=== PATIENT | female | born 1945 | race Caucasian/White ===

== ENCOUNTER 2017-07-29 08:00 | Inpatient (IN) | payer OTHER ==
[~2017-07-29] VITALS: Ht 168.9 cm; Wt 79.9 kg
[~2017-07-29 08:00] MED LIST: ASCO100T5 PO; FERR-36 PO; LOSA1TAB19 PO; OMEP-110 PO; ONDA8TAB16 SL; SENN8.6T5 PO; SPIR50TA2 PO
[2017-07-29] MEDS ORDERED: LIDOCAINE/PRILOCAINE CRM W/TEG 5GM TP PRN (09:00)
[2017-07-29 09:01] VITALS: BP 123/86
[2017-07-29 09:02] VITALS: BP 123/86
[2017-07-29 09:41] LABS: HEMOGLOBIN 10.8 g/dL (11.7-16.4); WHITE BLOOD COUNT 14.9 x10^3/uL (3.4-10)
[2017-07-29 09:53] LABS: ASPARTATE AMINO TRANSFERASE 188 U/L (15-37); BLOOD UREA NITROGEN 6 mg/dL (7-18)
[2017-07-29 10:00] LABS: DIFF TOTAL CELLS COUNTED 100 CELL DIFF
[2017-07-29 10:01] LABS: ANISOCYTOSIS 1+; VERIFY COUNTS? YES
[2017-07-29] MEDS ORDERED: OXYC-306 PO (10:47)
[2017-07-29] MEDS ORDERED: MORP30TA81 PO (10:47)
[2017-07-29] MEDS: OXYcodone/APAP 7.5/325MG TABLET PO PRN ×2 (12:00→16:26)
[2017-07-29 12:40] VITALS: BP 113/71
[2017-07-29] MEDS ORDERED: ONDANSETRON IV ONE (13:00)
[2017-07-29] MEDS ORDERED: FAMOTIDINE 20 MG/2 ML IVPush ONE (13:00)
[2017-07-29] MEDS ORDERED: DEXTROSE 5% IV ONE ×3 (13:00→13:30)
[2017-07-29] MEDS ORDERED: DEXAMETHASONE IV ONE (13:00)
[2017-07-29] MEDS ORDERED: LEUCOVORIN IV ONE (13:30)
[2017-07-29] MEDS ORDERED: OXALIPLATIN IV ONE (13:30)
[2017-07-29] MEDS: ENOXAPARIN 40 MG/0.4 ML SQ SCH (13:33)
[2017-07-29] MEDS ORDERED: FLUOROURACIL IV ONE (15:30)
[2017-07-29] MEDS: SODIUM CHLORIDE 0.9% IV SCH (17:54)
[2017-07-29] MEDS: FLUOROURACIL IV SCH (17:54)
[2017-07-29 19:16] VITALS: BP 117/76
[2017-07-29] MEDS: POTASSIUM CHLORIDE 10 MEQ in SODIUM CHLORIDE 0.9% 1,000 ML IV SCH (20:14)
[2017-07-29] MEDS: ONDANSETRON ODT 8 MG BC SCH (20:14)
[2017-07-30 02:12] VITALS: BP 150/88
[2017-07-30] MEDS: OXYcodone/APAP 7.5/325MG TABLET PO PRN ×2 (02:51→13:23)
[2017-07-30 04:33] LABS: BLOOD UREA NITROGEN 7 mg/dL (7-18)
[2017-07-30 04:37] LABS: ASPARTATE AMINO TRANSFERASE 142 U/L (15-37)
[2017-07-30] MEDS ORDERED: OMEPRAZOLE 20 MG CAPSULE.DR PO SCH (07:30)
[2017-07-30 07:40] VITALS: BP 155/79
[2017-07-30] MEDS: HYDROCHLOROTHIAZIDE 12.5 MG CAPSULE PO SCH (08:36)
[2017-07-30] MEDS: ONDANSETRON ODT 8 MG BC SCH ×2 (08:37→20:40)
[2017-07-30] MEDS: GABAPENTIN 300 MG CAPSULE PO SCH (08:40)
[2017-07-30] MEDS: LOSARTAN 50MG TABLET PO SCH (08:40)
[2017-07-30] MEDS: FERROUS SULFATE 325 MG TABLET PO SCH (08:41)
[2017-07-30] MEDS: POTASSIUM CHLORIDE 10 MEQ in SODIUM CHLORIDE 0.9% 1,000 ML IV SCH (11:04)
[2017-07-30] MEDS: ENOXAPARIN 40 MG/0.4 ML SQ SCH (11:05)
[2017-07-30] MEDS ORDERED: CALCIUM CARBONATE 500 MG TAB.CHEW PO PRN (14:00)
[2017-07-30 14:05] VITALS: BP 147/72
[2017-07-30 20:19] VITALS: BP 133/84
[2017-07-30] MEDS: OMEPRAZOLE 20 MG CAPSULE.DR PO SCH (21:52)
[2017-07-31] MEDS: FLUOROURACIL IV SCH (00:05)
[2017-07-31] MEDS: SODIUM CHLORIDE 0.9% IV SCH (00:05)
[2017-07-31] MEDS: POTASSIUM CHLORIDE 10 MEQ in SODIUM CHLORIDE 0.9% 1,000 ML IV SCH ×2 (00:12→13:15)
[2017-07-31 04:40] VITALS: BP 129/73
[2017-07-31] MEDS: OXYcodone/APAP 7.5/325MG TABLET PO PRN ×3 (05:09→18:13)
[2017-07-31 05:30] LABS: HEMATOCRIT 29.1 % (34.6-47.8); HEMOGLOBIN 9.9 g/dL (11.7-16.4); WHITE BLOOD COUNT 17.1 x10^3/uL (3.4-10)
[2017-07-31 05:41] LABS: ASPARTATE AMINO TRANSFERASE 147 U/L (15-37); BLOOD UREA NITROGEN 15 mg/dL (7-18)
[2017-07-31 05:53] LABS: DIFF TOTAL CELLS COUNTED 100 CELL DIFF
[2017-07-31 05:55] LABS: VERIFY COUNTS? YES
[2017-07-31 05:56] LABS: ANISOCYTOSIS 1+
[2017-07-31 06:36] VITALS: BP 127/75
[2017-07-31] MEDS: OMEPRAZOLE 20 MG CAPSULE.DR PO SCH ×2 (08:58→20:24)
[2017-07-31] MEDS: ONDANSETRON ODT 8 MG BC SCH ×2 (08:58→21:39)
[2017-07-31] MEDS: FERROUS SULFATE 325 MG TABLET PO SCH (08:59)
[2017-07-31] MEDS: LOSARTAN 50MG TABLET PO SCH (08:59)
[2017-07-31] MEDS: GABAPENTIN 300 MG CAPSULE PO SCH (08:59)
[2017-07-31] MEDS: HYDROCHLOROTHIAZIDE 12.5 MG CAPSULE PO SCH (08:59)
[2017-07-31] MEDS: ENOXAPARIN 40 MG/0.4 ML SQ SCH (11:49)
[2017-07-31 13:23] VITALS: BP 171/79
[2017-07-31] MEDS ORDERED: SODIUM CHLORIDE 0.9% 1,000 ML IV SCH (17:00)
[2017-07-31] MEDS ORDERED: ONDANSETRON IV ONE (17:00)
[2017-07-31] MEDS ORDERED: PROCHLORPERAZINE 10MG TABLET PO PRN (17:00)
[2017-07-31] MEDS ORDERED: DEXTROSE 5% IV ONE (17:00)
[2017-07-31 18:43] VITALS: BP 153/83
[2017-08-01 00:05] VITALS: BP 135/81
[2017-08-01 03:25] LABS: HEMATOCRIT 27.3 % (34.6-47.8); HEMOGLOBIN 9.2 g/dL (11.7-16.4); WHITE BLOOD COUNT 13.1 x10^3/uL (3.4-10)
[2017-08-01 03:32] LABS: ASPARTATE AMINO TRANSFERASE 192 U/L (15-37); BLOOD UREA NITROGEN 19 mg/dL (7-18)
[2017-08-01 03:41] LABS: DIFF TOTAL CELLS COUNTED 100 CELL DIFF
[2017-08-01 03:49] LABS: ANISOCYTOSIS 1+; VERIFY COUNTS? YES
[2017-08-01] MEDS: SODIUM CHLORIDE 0.9% 1,000 ML IV SCH ×2 (04:57→15:48)
[2017-08-01] MEDS: OXYcodone/APAP 7.5/325MG TABLET PO PRN ×3 (05:02→17:15)
[2017-08-01] MEDS: LOSARTAN 50MG TABLET PO SCH (07:30)
[2017-08-01] MEDS: OMEPRAZOLE 20 MG CAPSULE.DR PO SCH (07:30)
[2017-08-01] MEDS: GABAPENTIN 300 MG CAPSULE PO SCH (07:30)
[2017-08-01] MEDS: FERROUS SULFATE 325 MG TABLET PO SCH (07:30)
[2017-08-01] MEDS: HYDROCHLOROTHIAZIDE 12.5 MG CAPSULE PO SCH (07:30)
[2017-08-01] MEDS: ONDANSETRON ODT 8 MG BC SCH (07:30)
[2017-08-01 08:10] VITALS: BP 137/77
[2017-08-01] MEDS ORDERED: DEXTROSE 5% IV ONE (09:00)
[2017-08-01] MEDS ORDERED: ONDANSETRON IV ONE (09:00)
[2017-08-01] MEDS: ENOXAPARIN 40 MG/0.4 ML SQ SCH (11:41)
[2017-08-01 13:51] VITALS: BP 126/71
== END 2017-08-01 17:55 | disposition home or self-care (01) | DRG 846 ==
LOC: 3NW 08:19
PROVIDERS: ADMIT Internal Medicine Hematology & Oncology; ATTEND Internal Medicine Hematology & Oncology
DX: Z51.11 Encounter for antineoplastic chemotherapy (principal); E43 Unspecified severe protein-calorie malnutrition; C78.7 Secondary malignant neoplasm of liver and intrahepatic bile duct; C19 Malignant neoplasm of rectosigmoid junction; G62.9 Polyneuropathy, unspecified; I10 Essential (primary) hypertension; Z66 Do not resuscitate
CPT/HCPCS: 36415; 80053; 82378; 85025; J0640; J1100; J1650; J2405; J3480; J7060; Q0162; J7030; J9190; J9263; S0028

== ENCOUNTER 2017-08-10 00:56 | Inpatient (IN) | payer OTHER ==
[~2017-08-10] VITALS: Ht 170.2 cm; Wt 65.6 kg
[~2017-08-10 00:56] MED LIST changes: +MORP30TA81 PO; +OXYC-306 PO
[2017-08-10] MEDS ORDERED: SODIUM CHLORIDE 0.9% 1,000ML IVBOLUS ONE (01:00)
[2017-08-10] MEDS ORDERED: DILTIAZEM 5 MG/ML, 5ML IV ONE (01:00)
[2017-08-10] MEDS ORDERED: ONDANSETRON 2MG/ML, 2ML IVPush ONE (01:00)
[2017-08-10] MEDS ORDERED: SODIUM CHLORIDE FLUSH 10ML SYR IVF ONE (01:00)
[2017-08-10] MEDS ORDERED: ASPIRIN 81 MG TABLET CHEW PO ONE (01:00)
[2017-08-10] MEDS ORDERED: DILTIAZEM 5 MG/ML, 5ML ONE ×2 (01:04→01:24)
[2017-08-10 01:19] LABS: MD YES; MEAN CORPUSCULAR HEMOGLOBIN 31.7 pg (27.0-34.8); MEAN CORPUSCULAR HGB CONC 33.6 g/dL (32.4-35.8); MEAN CORPUSCULAR VOLUME 94.4 fL (80-100); MEAN PLATELET VOLUME 7.9 fL (7.4-10.4); PLATELET COUNT 396 x10^3/uL (130-400); RED BLOOD COUNT 2.94 x10^6/uL (3.82-5.3)
[2017-08-10] MEDS ORDERED: ASPIRIN 81 MG TABLET CHEW ONE (01:19)
[2017-08-10 01:26] LABS: INTERNATIONAL NORMALIZED RATIO 1.49 (0.93-1.1); PROTHROMBIN TIME 15.2 Seconds (9.6-11.5)
[2017-08-10 01:29] LABS: ALANINE AMINOTRANSFERASE 24 U/L (12-78); ALBUMIN 2.1 g/dL (3.4-5.0); ANION GAP 18 mmol/L (5-15); CALCIUM 8.2 mg/dL (8.5-10.1); CHLORIDE 104 mmol/L (98-107); CREATININE 0.76 mg/dL (0.55-1.02)
[2017-08-10] MEDS ORDERED: DILTIAZEM 5 MG/ML, 5ML IVPush ONE (01:30)
[2017-08-10 01:33] LABS: ALKALINE PHOSPHATASE 688 U/L (45-117); BILIRUBIN,TOTAL 1.4 mg/dL (0.2-1.0); T4 (THYROXINE) 11.8 mcg/dL (4.8-13.9); TOTAL PROTEIN 6.8 g/dL (6.4-8.2)
[2017-08-10] MEDS ORDERED: ONDANSETRON 2MG/ML, 2ML ONE (01:41)
[2017-08-10] MEDS ORDERED: morphine SULFATE 10 MG/ML, 1ML ONE (01:45)
[2017-08-10] MEDS: MORPHINE SULFATE 4 MG/ML, 1ML IVPush PRN ×2 (01:48→05:29)
[2017-08-10 01:53] LABS: LYMPH#(MANUAL) 3.14 x10^3/uL (1-3.4); LYMPHS% (MANUAL) 16 % (22-44); MONOS#(MANUAL) 1.57 x10^3/uL (0.3-2.7); MONOS% (MANUAL) 8 % (2-9); SEGS% (MANUAL) 76 % (42-75)
[2017-08-10 01:58] LABS: POLYCHROMASIA 1+
[2017-08-10 01:59] LABS: HYPOCHROMIA 1+; MICROCYTOSIS 1+
[2017-08-10 02:00] LABS: <PLATELET ESTIMATE> ADEQUATE; <PLT MORPHOLOGY> NORMAL PLT MORPH; HYPERSEG PMNs 1+
[2017-08-10] MEDS ORDERED: FUROSEMIDE 40 MG/4 ML IV ONE (02:00)
[2017-08-10] MEDS ORDERED: OMNIPAQUE 350 MG/ML, 100ML BOTTLE ONE (02:04)
[2017-08-10] MEDS ORDERED: FUROSEMIDE 20 MG/2 ML ONE (02:14)
[2017-08-10] MEDS ORDERED: DIGOXIN 0.25 MG/ML, 2ML ONE (02:23)
[2017-08-10] MEDS ORDERED: HEPARIN 5,000 UNITS/ML, 1ML IV ONE ×2 (02:30→08:00)
[2017-08-10] MEDS ORDERED: DIGOXIN 0.25 MG/ML, 2ML IVPush ONE ×2 (02:30→04:00)
[2017-08-10] MEDS ORDERED: HEPARIN 25,000 UNITS/500ML PMX 500 ML IV PRN (02:30)
[2017-08-10] MEDS ORDERED: HEPARIN 25,000 UNITS/500ML PMX 500 ML ONE (02:36)
[2017-08-10] MEDS ORDERED: HEPARIN 5,000 UNITS/ML, 1ML ONE (02:36)
[2017-08-10 02:44] LABS: RED CELL DISTRIBUTION WIDTH 18.1 % (9.6-15.2)
[2017-08-10 03:16] VITALS: BP 131/85
[2017-08-10] MEDS ORDERED: NS + 20MEQ KCL 1,000 ML IV SCH (05:21)
[2017-08-10] MEDS ORDERED: ONDANSETRON 2MG/ML, 2ML IVPush PRN (05:30)
[2017-08-10] MEDS ORDERED: MAGNESIUM SULFATE PMX 2GM/50ML 50 ML IV ONE ×2 (05:30→09:30)
[2017-08-10] MEDS ORDERED: morphine SULFATE 10 MG/ML, 1ML IVPush PRN (05:30)
[2017-08-10] MEDS ORDERED: ACETAMINOPHEN 325 MG TABLET PO PRN (05:30)
[2017-08-10] MEDS ORDERED: POTASSIUM CHLORIDE 20 MEQ TAB.ER.PRT PO ONE (06:00)
[2017-08-10] MEDS ORDERED: POTASSIUM CHLORIDE 40 MEQ in LACTATED RINGERS 1,000 ML IV SCH (06:00)
[2017-08-10] MEDS: METOPROLOL TARTRATE 25 MG TABLET PO SCH ×3 (06:38→18:38)
[2017-08-10 07:57] VITALS: BP 115/74
[2017-08-10] MEDS: LACTULOSE 10 GM/15 ML UDC PO SCH ×2 (08:25→20:44)
[2017-08-10] MEDS: OMEPRAZOLE 20 MG CAPSULE.DR PO SCH (08:25)
[2017-08-10] MEDS: FERROUS SULFATE 325 MG TABLET PO SCH (08:25)
[2017-08-10] MEDS: HEPARIN 5,000 UNITS/ML, 1ML IV PRN (10:31)
[2017-08-10 11:46] LABS: MICROSCOPIC AUTO
[2017-08-10 11:48] LABS: CULTURE INDICATED? YES
[2017-08-10 13:39] VITALS: BP 106/63
[2017-08-10] MEDS: CEFTRIAXONE PMX 2GM/50ML 50 ML IV SCH (16:44)
[2017-08-10 23:31] VITALS: BP 98/65
[2017-08-11] MEDS: METOPROLOL TARTRATE 25 MG TABLET PO SCH ×4 (00:39→18:43)
[2017-08-11 02:44] VITALS: BP 120/67
[2017-08-11] MEDS: HEPARIN 25,000 UNITS/500ML PMX 500 ML IV PRN (03:30)
[2017-08-11 05:25] LABS: CHLORIDE 101 mmol/L (98-107)
[2017-08-11 05:29] LABS: BASOPHILS # (AUTO) 0.01 x10^3/uL (0-0.1); BASOPHILS % (AUTO) 0 % (0-1); EOSINOPHILS # (AUTO) 0.11 x10^3/uL (0-0.4); EOSINOPHILS % (AUTO) 1 % (1-7); LYMPHOCYTES # (AUTO) 1.99 x10^3/uL (1-3.4); LYMPHOCYTES % (AUTO) 22 % (22-44); MD NO; MEAN CORPUSCULAR HGB CONC 33.5 g/dL (32.4-35.8); MEAN CORPUSCULAR VOLUME 95.6 fL (80-100); MEAN PLATELET VOLUME 8.3 fL (7.4-10.4); MONOCYTES # (AUTO) 1.04 x10^3/uL (0.2-0.8); MONOCYTES % (AUTO) 11 % (2-9); NEUTROPHILS # (AUTO) 6.03 x10^3/uL (1.8-6.8); NEUTROPHILS % (AUTO) 66 % (42-75); PLATELET COUNT 333 x10^3/uL (130-400); RED BLOOD COUNT 2.79 x10^6/uL (3.82-5.3); RED CELL DISTRIBUTION WIDTH 19.2 % (9.6-15.2)
[2017-08-11 05:57] LABS: ALANINE AMINOTRANSFERASE 17 U/L (12-78); ALBUMIN 1.8 g/dL (3.4-5.0); ALKALINE PHOSPHATASE 510 U/L (45-117); ANION GAP 12 mmol/L (5-15); BILIRUBIN,TOTAL 0.9 mg/dL (0.2-1.0); CALCIUM 8.1 mg/dL (8.5-10.1); CREATININE 0.82 mg/dL (0.55-1.02); TOTAL PROTEIN 6.3 g/dL (6.4-8.2)
[2017-08-11] MEDS: HEPARIN 5,000 UNITS/ML, 1ML IV PRN ×2 (06:38→19:39)
[2017-08-11 07:00] VITALS: BP 110/67
[2017-08-11] MEDS ORDERED: MAGNESIUM SULFATE PMX 2GM/50ML 50 ML IV ONE (08:30)
[2017-08-11] MEDS: LACTULOSE 10 GM/15 ML UDC PO SCH ×2 (09:00→22:42)
[2017-08-11] MEDS: POTASSIUM CHLORIDE 20 MEQ TAB.ER.PRT PO SCH ×2 (09:04→12:31)
[2017-08-11] MEDS: FERROUS SULFATE 325 MG TABLET PO SCH (09:05)
[2017-08-11] MEDS: OMEPRAZOLE 20 MG CAPSULE.DR PO SCH (09:05)
[2017-08-11 12:29] VITALS: BP 125/76
[2017-08-11] MEDS: POTASSIUM PHOSPHATE 44 MEQ in SODIUM CHLORIDE 0.9% 500 ML IV SCH ×2 (12:30→22:50)
[2017-08-11 13:04] VITALS: BP 129/82
[2017-08-11 13:36] VITALS: BP 110/67
[2017-08-11] MEDS ORDERED: OMNIPAQUE 350 MG/ML, 100ML BOTTLE ONE (18:23)
[2017-08-11] MEDS: CEFTRIAXONE PMX 2GM/50ML 50 ML IV SCH (18:43)
[2017-08-11 22:36] VITALS: BP 126/76
[2017-08-11] MEDS: OXYcodone/APAP 7.5/325MG TABLET PO PRN (22:50)
[2017-08-12] MEDS: METOPROLOL TARTRATE 25 MG TABLET PO SCH ×4 (00:06→16:44)
[2017-08-12 03:20] VITALS: BP 114/78
[2017-08-12] MEDS: HEPARIN 25,000 UNITS/500ML PMX 500 ML IV PRN (06:00)
[2017-08-12 07:39] VITALS: BP 118/74
[2017-08-12] MEDS: LACTULOSE 10 GM/15 ML UDC PO SCH ×2 (08:13→21:45)
[2017-08-12] MEDS: FERROUS SULFATE 325 MG TABLET PO SCH (08:13)
[2017-08-12] MEDS: OMEPRAZOLE 20 MG CAPSULE.DR PO SCH (08:13)
[2017-08-12] MEDS: HEPARIN 5,000 UNITS/ML, 1ML IV PRN (09:24)
[2017-08-12] MEDS ORDERED: POTASSIUM PHOSPHATE 44 MEQ in SODIUM CHLORIDE 0.9% 500 ML IV ONE (10:00)
[2017-08-12] MEDS ORDERED: POTASSIUM CHLORIDE 20 MEQ TAB.ER.PRT PO ONE (10:00)
[2017-08-12 15:02] VITALS: BP 138/77
[2017-08-12] MEDS: CEFTRIAXONE PMX 2GM/50ML 50 ML IV SCH (16:44)
[2017-08-12 20:23] VITALS: BP 131/76
[2017-08-13 00:41] VITALS: BP 129/81
[2017-08-13] MEDS: METOPROLOL TARTRATE 25 MG TABLET PO SCH ×4 (00:43→19:28)
[2017-08-13] MEDS: HEPARIN 25,000 UNITS/500ML PMX 500 ML IV PRN (04:53)
[2017-08-13 05:51] LABS: BASOPHILS # (AUTO) 0.04 x10^3/uL (0-0.1); BASOPHILS % (AUTO) 1 % (0-1); CHLORIDE 100 mmol/L (98-107); EOSINOPHILS # (AUTO) 0.13 x10^3/uL (0-0.4); EOSINOPHILS % (AUTO) 2 % (1-7); LYMPHOCYTES # (AUTO) 1.74 x10^3/uL (1-3.4); LYMPHOCYTES % (AUTO) 32 % (22-44); MD NO; MEAN CORPUSCULAR HEMOGLOBIN 32.4 pg (27.0-34.8); MEAN CORPUSCULAR HGB CONC 33.8 g/dL (32.4-35.8); MEAN PLATELET VOLUME 8.9 fL (7.4-10.4); MONOCYTES # (AUTO) 0.94 x10^3/uL (0.2-0.8); MONOCYTES % (AUTO) 17 % (2-9); NEUTROPHILS # (AUTO) 2.61 x10^3/uL (1.8-6.8); NEUTROPHILS % (AUTO) 48 % (42-75); PLATELET COUNT 338 x10^3/uL (130-400); RED BLOOD COUNT 2.56 x10^6/uL (3.82-5.3)
[2017-08-13 06:12] LABS: ALANINE AMINOTRANSFERASE 17 U/L (12-78); ALBUMIN 1.9 g/dL (3.4-5.0); ALKALINE PHOSPHATASE 447 U/L (45-117); ANION GAP 9 mmol/L (5-15); BILIRUBIN,TOTAL 0.6 mg/dL (0.2-1.0); CALCIUM 8.3 mg/dL (8.5-10.1); TOTAL PROTEIN 6.3 g/dL (6.4-8.2)
[2017-08-13 07:41] VITALS: BP 126/71
[2017-08-13] MEDS: LACTULOSE 10 GM/15 ML UDC PO SCH (08:42)
[2017-08-13] MEDS: OMEPRAZOLE 20 MG CAPSULE.DR PO SCH ×2 (08:42→08:44)
[2017-08-13] MEDS: FERROUS SULFATE 325 MG TABLET PO SCH (08:42)
[2017-08-13] MEDS ORDERED: FUROSEMIDE 20 MG/2 ML IV ONE (10:00)
[2017-08-13] MEDS ORDERED: POTASSIUM CHLORIDE 20 MEQ TAB.ER.PRT PO ONE (10:00)
[2017-08-13] MEDS ORDERED: GADOBUTROL 7.5 MMOL/7.5 ML PFS ONE (12:36)
[2017-08-13 13:38] VITALS: BP 122/75
[2017-08-13] MEDS ORDERED: POLYETHYLENE GLYCOL 17 GM PACKET PO PRN (16:30)
[2017-08-13 17:53] VITALS: BP 144/82
[2017-08-13] MEDS: CEFTRIAXONE PMX 2GM/50ML 50 ML IV SCH (19:28)
[2017-08-13 20:39] VITALS: BP 117/65
[2017-08-14] MEDS: METOPROLOL TARTRATE 25 MG TABLET PO SCH ×4 (00:25→19:39)
[2017-08-14 03:24] VITALS: BP 121/66
[2017-08-14] MEDS: HEPARIN 25,000 UNITS/500ML PMX 500 ML IV PRN (04:00)
[2017-08-14] MEDS: HEPARIN 5,000 UNITS/ML, 1ML IV PRN (06:14)
[2017-08-14 08:17] VITALS: BP 130/74
[2017-08-14] MEDS: OMEPRAZOLE 20 MG CAPSULE.DR PO SCH (08:23)
[2017-08-14] MEDS: FERROUS SULFATE 325 MG TABLET PO SCH (08:23)
[2017-08-14 11:26] LABS: ALANINE AMINOTRANSFERASE 13 U/L (12-78); ALBUMIN 1.7 g/dL (3.4-5.0); ANION GAP 9 mmol/L (5-15); CALCIUM 8.3 mg/dL (8.5-10.1); CHLORIDE 101 mmol/L (98-107); CREATININE 0.55 mg/dL (0.55-1.02)
[2017-08-14 11:28] LABS: ALKALINE PHOSPHATASE 404 U/L (45-117); BILIRUBIN,TOTAL 0.5 mg/dL (0.2-1.0); TOTAL PROTEIN 5.7 g/dL (6.4-8.2)
[2017-08-14 12:00] LABS: MD YES; MEAN CORPUSCULAR HGB CONC 33.5 g/dL (32.4-35.8); MEAN CORPUSCULAR VOLUME 95.6 fL (80-100); MEAN PLATELET VOLUME 9.1 fL (7.4-10.4); PLATELET COUNT 309 x10^3/uL (130-400); RED BLOOD COUNT 2.45 x10^6/uL (3.82-5.3)
[2017-08-14 12:08] LABS: EOS#(MANUAL) 0.05 x10^3/uL (0.0-0.4); EOS% (MANUAL) 1 % (1-7); LYMPH#(MANUAL) 1.39 x10^3/uL (1-3.4); LYMPHS% (MANUAL) 29 % (22-44); MONOS% (MANUAL) 25 % (2-9); REACTIVE LYMPHS # (MANUAL) 0.05 x10^3/uL (0-0); REACTIVE LYMPHS % (MANUAL) 1 % (0-0); SEG#(MANUAL) 2.11 x10^3/uL (1.8-6.8); SEGS% (MANUAL) 44 % (42-75)
[2017-08-14 12:13] LABS: ANISOCYTOSIS 2+; HYPOCHROMIA 1+; POLYCHROMASIA 1+
[2017-08-14 12:14] LABS: <PLATELET ESTIMATE> ADEQUATE; <PLT MORPHOLOGY> NORMAL PLT MORPH
[2017-08-14 12:30] VITALS: BP 131/79
[2017-08-14 19:37] VITALS: BP 123/79
[2017-08-14] MEDS: CEFTRIAXONE PMX 2GM/50ML 50 ML IV SCH (19:39)
[2017-08-15] MEDS: METOPROLOL TARTRATE 25 MG TABLET PO SCH ×3 (00:37→20:22)
[2017-08-15 03:05] VITALS: BP 146/80
[2017-08-15] MEDS: ASPIRIN 81 MG TABLET EC PO SCH (06:25)
[2017-08-15 08:46] VITALS: BP 135/83
[2017-08-15] MEDS: FERROUS SULFATE 325 MG TABLET PO SCH (10:53)
[2017-08-15] MEDS: OMEPRAZOLE 20 MG CAPSULE.DR PO SCH ×2 (10:53→10:54)
[2017-08-15 15:02] VITALS: BP 144/81
[2017-08-15 15:50] VITALS: BP 141/80
[2017-08-15 19:00] VITALS: BP 146/77
[2017-08-15] MEDS ORDERED: ENOXAPARIN 40 MG/0.4 ML SQ SCH (20:00)
[2017-08-15] MEDS: OXYcodone/APAP 7.5/325MG TABLET PO PRN (20:22)
[2017-08-15 23:24] LABS: TROPONIN I 0.031 ng/mL (0.000-0.045)
[2017-08-16 00:08] VITALS: BP 165/90
[2017-08-16] MEDS: OXYcodone/APAP 7.5/325MG TABLET PO PRN ×2 (05:16→09:14)
[2017-08-16] MEDS: ASPIRIN 81 MG TABLET EC PO SCH (05:16)
[2017-08-16 06:50] VITALS: BP 170/81
[2017-08-16 09:32] LABS: ANION GAP 8 mmol/L (5-15); CALCIUM 8.4 mg/dL (8.5-10.1); CHLORIDE 103 mmol/L (98-107); CREATININE 0.55 mg/dL (0.55-1.02)
[2017-08-16] MEDS: OMEPRAZOLE 20 MG CAPSULE.DR PO SCH (09:54)
[2017-08-16] MEDS: FERROUS SULFATE 325 MG TABLET PO SCH (09:54)
[2017-08-16] MEDS: METOPROLOL TARTRATE 25 MG TABLET PO SCH (09:55)
[2017-08-16 09:59] LABS: MEAN CORPUSCULAR HEMOGLOBIN 32.6 pg (27.0-34.8); MEAN CORPUSCULAR HGB CONC 33.9 g/dL (32.4-35.8); MEAN CORPUSCULAR VOLUME 96.1 fL (80-100); MEAN PLATELET VOLUME 8.5 fL (7.4-10.4); PLATELET COUNT 341 x10^3/uL (130-400); RED BLOOD COUNT 2.64 x10^6/uL (3.82-5.3); RED CELL DISTRIBUTION WIDTH 25.7 % (9.6-15.2)
[2017-08-16 10:18] LABS: MD YES
[2017-08-16 10:22] LABS: EOS#(MANUAL) 0.05 x10^3/uL (0.0-0.4); EOS% (MANUAL) 1 % (1-7); LYMPH#(MANUAL) 1.36 x10^3/uL (1-3.4); LYMPHS% (MANUAL) 29 % (22-44); MONOS#(MANUAL) 1.13 x10^3/uL (0.3-2.7); MONOS% (MANUAL) 24 % (2-9); NRBC % (MANUAL) 1 % (0-1); SEG#(MANUAL) 2.16 x10^3/uL (1.8-6.8); SEGS% (MANUAL) 46 % (42-75)
[2017-08-16 10:23] LABS: ANISOCYTOSIS 2+; POLYCHROMASIA 1+
[2017-08-16 10:24] LABS: <PLATELET ESTIMATE> ADEQUATE; <PLT MORPHOLOGY> NORMAL PLT MORPH
[2017-08-16] MEDS ORDERED: METO25TA35 PO (13:22)
[2017-08-16] MEDS ORDERED: ASPI-621 PO (13:22)
[2017-08-16 14:00] VITALS: BP 155/83
== END 2017-08-16 16:27 | disposition home health service (06) | DRG 871 ==
LOC: ED 02:40 → EDIP 02:41 → 5SO 03:02 → 3NW 08-15 15:29
PROVIDERS: ADMIT Hospitalist; ATTEND Internal Medicine
PROC: 02HV33Z Insertion of Infusion Device into Superior Vena Cava, Percutaneous Approach (ICD-10-PCS; principal; 2017-08-13)
PROC: B548ZZA Ultrasonography of Superior Vena Cava, Guidance (ICD-10-PCS; 2017-08-13)
DX: A41.9 Sepsis, unspecified organism (principal); I21.4 Non-ST elevation (NSTEMI) myocardial infarction; J96.00 Acute respiratory failure, unspecified whether with hypoxia or hypercapnia; E43 Unspecified severe protein-calorie malnutrition; G93.40 Encephalopathy, unspecified; I50.31 Acute diastolic (congestive) heart failure; J90 Pleural effusion, not elsewhere classified; D68.69 Other thrombophilia; R78.81 Bacteremia; C78.00 Secondary malignant neoplasm of unspecified lung; R18.8 Other ascites; C78.7 Secondary malignant neoplasm of liver and intrahepatic bile duct; E87.2 Acidosis; C18.9 Malignant neoplasm of colon, unspecified; N39.0 Urinary tract infection, site not specified; E83.39 Other disorders of phosphorus metabolism; I48.91 Unspecified atrial fibrillation; B96.20 Unspecified Escherichia coli [E. coli] as the cause of diseases classified elsewhere; Z68.22 Body mass index [BMI] 22.0-22.9, adult; Z88.8 Allergy status to other drugs, medicaments and biological substances; D64.9 Anemia, unspecified; E87.6 Hypokalemia; G89.29 Other chronic pain; M54.9 Dorsalgia, unspecified; I11.0 Hypertensive heart disease with heart failure; R91.1 Solitary pulmonary nodule; I27.20 Pulmonary hypertension, unspecified; I34.0 Nonrheumatic mitral (valve) insufficiency; Z66 Do not resuscitate; Z79.01 Long term (current) use of anticoagulants; Z79.82 Long term (current) use of aspirin; Z79.899 Other long term (current) drug therapy; Z87.891 Personal history of nicotine dependence; Z92.21 Personal history of antineoplastic chemotherapy; Z90.89 Acquired absence of other organs
CPT/HCPCS: 36415; 36569; 70553; 71010; 71275; 74177; 76937; 77001; 80048; 80053; 81001; 82378; 83605; 83735; 83880; 84100; 84145; 84436; 84443; 84484; 85014; 85018; 85025; 85520; 85610; 85730; 87040; 87077; 87086; 87186; 93005; 93306; 96361; 96365; 96375; A9585; J0696; J1644; J1650; J1940; J2405; J3480; Q9967; C1751; J1160; J3475; J7030; J7040; J7120